=== PATIENT | female | born 1940 | race Caucasian/White ===

== ENCOUNTER → 2021-07-27 15:30 | Outpatient (BNVA) | payer OTHER, MEDICAID, SELFPAY | PROVIDERS: Visit Provider Psychiatry & Neurology Neurology | DX: G20 Parkinson's disease (principal); K59.00 Constipation, unspecified; R44.3 Hallucinations, unspecified | CPT/HCPCS: 99212 ==

== ENCOUNTER → 2021-11-18 14:42 | Outpatient (BNVA) | payer OTHER, MEDICAID, SELFPAY | PROVIDERS: Visit Provider Psychiatry & Neurology Neurology | DX: G20 Parkinson's disease (principal); K59.00 Constipation, unspecified; R44.3 Hallucinations, unspecified | CPT/HCPCS: 99212 ==

== ENCOUNTER → 2022-03-10 15:14 | Outpatient (BNVA) | payer OTHER, MEDICAID, SELFPAY | PROVIDERS: Visit Provider Psychiatry & Neurology Neurology | DX: G20 Parkinson's disease (principal); K59.00 Constipation, unspecified; R44.3 Hallucinations, unspecified | CPT/HCPCS: 99212 ==

== ENCOUNTER → 2022-04-24 15:38 | Outpatient (BNVA) | payer OTHER, MEDICAID, SELFPAY | PROVIDERS: Visit Provider Psychiatry & Neurology Neurology | DX: G20 Parkinson's disease (principal); K59.00 Constipation, unspecified; R44.3 Hallucinations, unspecified | CPT/HCPCS: 99212 ==

== ENCOUNTER → 2022-07-25 15:02 | Outpatient (BNVA) | payer OTHER, MEDICAID, SELFPAY | PROVIDERS: Visit Provider Psychiatry & Neurology Neurology | DX: G20 Parkinson's disease (principal); K59.00 Constipation, unspecified | CPT/HCPCS: 99212 ==

== ENCOUNTER → 2022-08-30 15:28 | Outpatient (BNVA) | payer OTHER, MEDICAID, SELFPAY | PROVIDERS: Visit Provider Psychiatry & Neurology Neurology | DX: G20 Parkinson's disease (principal); K59.00 Constipation, unspecified | CPT/HCPCS: Q3014 ==

== ENCOUNTER → 2022-09-18 10:55 | Outpatient (BNVA) | payer OTHER, MEDICAID, SELFPAY | PROVIDERS: Visit Provider Psychiatry & Neurology Neurology | DX: G20 Parkinson's disease (principal); K59.00 Constipation, unspecified | CPT/HCPCS: Q3014 ==

== ENCOUNTER → 2022-10-24 16:04 | Outpatient (BNVA) | payer OTHER, MEDICAID, SELFPAY | PROVIDERS: Visit Provider Psychiatry & Neurology Neurology | DX: G20 Parkinson's disease (principal); R44.3 Hallucinations, unspecified; I95.9 Hypotension, unspecified; K59.00 Constipation, unspecified | CPT/HCPCS: 99212 ==

== ENCOUNTER → 2023-02-05 15:06 | Outpatient (BNVA) | payer OTHER, MEDICAID, SELFPAY | PROVIDERS: Visit Provider Psychiatry & Neurology Neurology ==

== ENCOUNTER 2023-02-05 15:10 | Outpatient (AMB) | payer OTHER, MEDICAID, SELFPAY ==
--- NOTE | 2023-02-05 15:07 | A.OFFVIS_ITS ---
Intake Intake Visit Reasons: 3 mo f/u for Tremors-confirmed Intake Note: Patient presents for 3 month follow up Allergies No Known Allergies Allergy (Verified 02/05/23 15:07) Medication List - Last Reconciled 02/05/23 by Joanna Veras MD ascorbic acid (vitamin C) 1,000 mg PO DAILY carbidopa-levodopa 23.75-95 mg ER (Rytary) 3 caps PO .5 times a day carbidopa-levodopa 50-200 mg ER 1 tab PO .5 times a day melatonin 5 mg PO .at bedtime mirtazapine 15 mg PO BEDTIME multivitamin 1 tab PO DAILY HPI HPI Comments History of Present Illness Details ??82y/o female calls for follow up .she has increased tremors, shuffling the the morning.Her freezing episodes she is on rytary 23/95 - 3 caps 5 times a day , sinemet CR 50/200 5 times a day . she wants to try 3 am dose and see how she is doing CBD at night is helping her tremors and sleep. ? she takes melatonin 5 mg about 10 pm and sleepy during the day. she has h/o depression as a child - has ECT she has memory issues.she has trouble remembering conversations. ?Denies hallucination, lightheadedness or dizziness. ???Denies problem with eating or swallowing. she reports weight loss. [facility] Medical History Anxiety Constipation Depression Hallucinations Hypotension Parkinsons disease Social History Alcohol intake: never Patient Tobacco Use Status: Never used Tobacco Physical Exam Neuro Other: SPeech normal Alert oriented X 3 Assessment & Plan Assessment & Plan (1) Parkinsons disease: Code(s): G20 - Parkinson's disease (2) Constipation: Code(s): K59.00 - Constipation, unspecified Plan Mirtazepine 15mg qhs sinemet CR 50/200 1 tab 8am, 1pm, 6pm, 10pm Rytary 23.75/95 3 cap 4 times a day she declines Duopa Telehealth Telehealth Location of provider rendering services: practice address Location of patient: address on file Patient Identification confirmed using: Name, : Yes Telehealth method: voice only Patient verbally consented to treatment: Yes Patient verbally consented to billing insurance company: Yes Patient informed of any privacy concerns related to visit: Yes Minutes spent on Phone/Video with Pt.: 22 Coding Level of Care Code Tele Est Pt Level 4 (03084) Diagnoses Parkinsons disease G20 Constipation K59.00
== END 2023-02-05 16:00 ==
PROVIDERS: Visit Provider Psychiatry & Neurology Neurology
DX: G20 Parkinson's disease (principal); K59.00 Constipation, unspecified
CPT/HCPCS: 99214

== ENCOUNTER 2023-04-23 14:25 | Outpatient (AMB) | payer OTHER, MEDICAID, SELFPAY ==
--- NOTE | 2023-04-23 14:37 | MHC.OFFVIS ---
Intake Intake Visit Reasons: 6 mo f/u for tremors-confirmed Intake Note: Pt presents to the office for a 6 month follow up of tremors. She states her tremors are most severe in the morning, at least 5 of 7 days. They can last any where between a few minutes to a full 24 hours. Pt would like to discuss coming off the Mirtazepine. Allergies No Known Allergies Allergy (Verified 04/23/23 14:38) HPI HPI Comments History of Present Illness Details ??82y/o female calls for follow up .she lost weight says she stopped dairy.she wants to stop mirtazepine because she thinks it can cause dementia. But it does help her to sleep.she strate don a immune booster and wants to start a mood supplement with 5 HTryptophan. she wanted something for anxiety - but wondering if she can take a supplement instead of zoloft. she has increased tremors, shuffling the the morning.Her freezing episodes she is on rytary - 3 caps 5 times a day , sinemet CR 50/200 5 times a day . she wants to try 3 am dose and see how she is doing CBD at night is helping her tremors and sleep. ? she takes melatonin 5 mg about 10 pm and sleepy during the day. she has h/o depression as a child - has ECT she has memory issues.she has trouble remembering conversations. ?Denies hallucination, lightheadedness or dizziness. ???Denies problem with eating or swallowing. she reports weight loss. [facility] Medical History Hallucinations Hypotension Anxiety Depression Constipation Parkinsons disease Social History Alcohol intake: never Patient Tobacco Use Status: Never used Tobacco Physical Exam Const Other: Mildly decreased blink and facial expression Moderate bradykinesia Bienvenido Ue rest tremors R>l Speech- good volume Mild anxiety Nutritional Appearance: average body habitus Orientation/consciousness: patient oriented x3 Neuro General: patient oriented x3 and moves all extremities Cognition (Neuro): normal cognition Assessment & Plan Assessment & Plan (1) Parkinsons disease: Code(s): G20 - Parkinson's disease (2) Constipation: Code(s): K59.00 - Constipation, unspecified Plan Mirtazepine 15mg qhs sinemet CR 50/200 1 tab 8am, 1pm, 6pm, 10pm Rytary 23.75/95 3 cap 5 times a day Discussed in detail about increasing caloric intake nutrition etc Coding Level of Care Code Est Pt Level 4 (20555) Diagnoses Parkinsons disease G20 Constipation K59.00
== END 2023-04-23 15:04 | disposition home or self-care (01) ==
PROVIDERS: Visit Provider Psychiatry & Neurology Neurology
DX: G20.A1 Parkinson's disease without dyskinesia, without mention of fluctuations (principal); K59.00 Constipation, unspecified
CPT/HCPCS: 99214

== ENCOUNTER → 2023-04-23 14:25 | Outpatient (BNVA) | payer OTHER, MEDICAID, SELFPAY | PROVIDERS: Visit Provider Psychiatry & Neurology Neurology | DX: G20.A1 Parkinson's disease without dyskinesia, without mention of fluctuations (principal); K59.00 Constipation, unspecified | CPT/HCPCS: 99212 ==

== ENCOUNTER → 2023-07-27 14:37 | Outpatient (BNVA) | payer OTHER, MEDICAID, SELFPAY | PROVIDERS: Absent Provider Nurse Practitioner Family; Visit Provider Nurse Practitioner Family ==

== ENCOUNTER 2024-04-09 14:10 | Outpatient (AMB) | payer MEDICAID, SELFPAY ==
--- NOTE | 2024-04-09 14:18 | MHC.OFFVIS ---
Vital Signs 04/09/24 14:20 Height 5 ft 4.5 in Weight 95 lb BMI 16.1 BP 110/70 Blood Pressure Location Rt brachial Position Sitting Respiration 16 Pulse 80 Pulse Source Pulse Oximeter Pulse Oximetry (%) 98 Oxygen Delivery Method Room Air Intake Visit Reasons: Follow Up Intake Note: Pt presents to the office for 9 month follow up for Parkinson's. [employer] Coordinator Required: No Allergies No Known Allergies Allergy (Verified 04/09/24 14:19) Medication List - Last Reconciled 04/09/24 by DINA Anton ascorbic acid (vitamin C) 1,000 mg PO DAILY carbidopa-levodopa 23.75-95 mg ER (Rytary) 3 caps PO .5 times a day carbidopa-levodopa 50-200 mg ER 1 tab PO .5 times a day docusate sodium (Colace) 100 mg PO BID PRN 90 days hydroxyzine HCl 10 mg PO TID PRN istradefylline (Nourianz) 20 mg PO DAILY 30 days melatonin 5 mg PO .at bedtime mirtazapine 30 mg PO BEDTIME multivitamin 1 tab PO DAILY sertraline 50 mg PO DAILY HPI Comments Details: 83-yr-old female presents for f/u of Parkinson's disease.. Pt is accompanied by her friend Janet. Since the last visit, pt did find the Nourianz to be very helpful. She did run out of it in December or January, and did not do as well that month, but felt better once she resumed it. Then, pt reports she had a fall on 02/11/24, and sustained a right femur fx requiring right femur ORIF. Pt states she was standing at a counter and fell, possibly lost her balance. Pt did note that someone suggetsed she have a bone density scan- but her friend states pt did not see the reasoning for it. She went to rehab, and while at rehab, she states her PD medications were not given as ordered. She was d/c'd home at the end of Feb w/o home PT/OT/NSG. She had ortho f/u w/ Dr Hurd's office through [email or web address]- they gave her an out-pt PT order. Since, returning home, pt has left the [employer] program as they could not offer as much home care assistance as pt feels she needs. She has a new w/c which is helpful. She is contining to work w/ She has an appt w/ her new PCP office in Apr. She is hoping to be referred to [facility]. Pt's current PD medication regimen: Rytary 23.75-95mg- 3 caps QID at 8am, 12pm, 4pm, 8pm. And 4 caps qd at 3am. She is concerned about the blue dye in her Rytary caps. CD-LD ER 50-200mg- 1 tab at 5 x's a day at 8am, 12pm, 4pm, 8pm, 3am. [id number] qd. ADL's: INeeding more help Swallowing: No usual issues Drooling: some drooling- day and night Orthostatic lightheadedness: Denies Constipation: Chronic- senna stopped working, using Mag citrate w/ better effect Stiffness: also feels stiffness, legs feel heavy,. denies cramps Dyskinesias: States feet can tap at times- but maybe that is her ADHD Tremor: ican be increased, has in the am but not always, has tremor even when she wakes up. Gait: Her balance is still poor Falls: as above. Hallucinations: May have illusions- thinks something is moving on the floor, but its just a spot Memory: stable Sleep: some nights sleeps 11pm-7am, other nights sleeps only a few hours or not all during the night, does nap throughout the day. Tylenol and hydroxyzine help w/ sleep. Exercise: is hoping to do PT Mood: Stable. Can be compulsive- states strong family h/o ADHD. Other: weight is stable. she has started to have dental work done. [facility] Medical History (Updated 04/09/24 @ 15:14 by DINA Anton) Hallucinations Hypotension Anxiety Depression Constipation Parkinsons disease Surgical History (Updated 04/09/24 @ 15:14 by DINA Anton) History of femoral hernia repair Social History Alcohol intake: never Patient Tobacco Use Status: Never used Tobacco Physical Exam Vital Signs: Last Vital Signs Pulse 80 04/09/24 14:20 Resp 16 04/09/24 14:20 BP 110/70 04/09/24 14:20 Pulse Ox 98 04/09/24 14:20 Oxygen Delivery Method Room Air 04/09/24 14:20 BMI result Body Mass Index 16.1 Const General: cooperative and no acute distress Neuro Other: General: Alert, oriented, very mild STM lapses Expression: Decreased expression and blink Voice: Soft Tremor: No RUE rest tremor today Tone: R>L BUE tightness Dyskinesia: BLE FFM: Bradykinesia, more so on left. Foot taps: Bradykinesia, more so on left. Gait: Stands fairly easily, prone to move and turn quickly w/ decreased arm swing, short steps, unsteady when turning. Psych: Pleasant affect Psych Appearance: grossly normal Mental Status: mental status grossly normal Attitude: cooperative Assessment & Plan Assessment & Plan (1) Parkinson's disease without dyskinesia: Code(s): G20.A1 - Parkinson's disease without dyskinesia, without mention of fluctuations Category: Medical (2) History of open reduction and internal fixation (ORIF) procedure: Code(s): Z98.890 - Other specified postprocedural states Category: Surgical (3) Right femoral fracture: Code(s): S72.91XA - Unspecified fracture of right femur, initial encounter for closed fracture Category: Medical (4) Constipation: Code(s): K59.00 - Constipation, unspecified Category: Medical Plan Home PT & OT as pt is homebound as she requires assistive device and assist of 1 to leave home safely d/t Parkinson's disease, dyskinesia, s/p right femur ORIF. Home PT for home safety, gait training, transfer training, strength training eval & tx Home OT for home safety, tremor, ADL, adaptive equipment eval & tx. Information shared on PD education resources. Note pt was wearing heeled cowboy boots, thus advised pt to wear better fitting and more supportive footwear. Pt advised to avoid daytime naps. f/u w/ Dr Hurd, ortho, as scheduled. Encouraged pt to discuss bone density scan w/ orthoi/new PCP- as if she does have osteoporosis, this can often be tretaed. Continue: Rytary 23.75-95mg- 3 caps QID at 8am, 12pm, 4pm, 8pm. And 4 caps qd at 3am. CD-LD ER 50-200mg- 1 tab at 5 x's a day at 8am, 12pm, 4pm, 8pm, 3am. Nourianz 20mg qam- as this has improved on-times. Mag citrate prn. Will refill hydroxzine until pt establishes care w/ new PCP. Past trials- trihexyphenidyl 1mg bid, Comtan. f/u in 3 months or sooner prn. Orders: [facility]errals [facility] Referral G20.A1 - Parkinson's disease without dyskinesia, without mention of fluctuations, S72.91XA - Unspecified fracture of right femur, initial encounter for closed fracture, Z98.890 - Other specified postprocedural states Medications: New hydroxyzine HCl 10 mg PO BID 30 days PRN 60 tabs 1RF anxiety Coding Level of Care Code Est Pt Level 4 (64890) Complex EM visit Add On G2211 Diagnoses Parkinson's disease without dyskinesia G20.A1 History of open reduction and internal fixation (ORIF) procedure Z98.890 Right femoral fracture S72.91XA Constipation K59.00 Time Spent (min) 45
[2024-04-09 14:20] VITALS: BP 110/70; PULSE 80; RESP 16; O2SAT 98; BMI 16.1
== END 2024-04-09 15:36 | disposition home or self-care (01) ==
PROVIDERS: Visit Provider Nurse Practitioner Family
DX: G20.A1 Parkinson's disease without dyskinesia, without mention of fluctuations (principal); Z98.890 Other specified postprocedural states; S72.91XA Unspecified fracture of right femur, initial encounter for closed fracture; K59.00 Constipation, unspecified
CPT/HCPCS: 99214

== ENCOUNTER → 2024-04-09 14:10 | Outpatient (BNVA) | payer MEDICAID, SELFPAY | PROVIDERS: Visit Provider Nurse Practitioner Family | DX: G20.A1 Parkinson's disease without dyskinesia, without mention of fluctuations (principal); S72.91XA Unspecified fracture of right femur, initial encounter for closed fracture; K59.00 Constipation, unspecified; Z98.890 Other specified postprocedural states | CPT/HCPCS: 99212 ==

== ENCOUNTER 2024-07-30 13:03 | Outpatient (AMB) | payer MEDICARE, MEDICAID, SELFPAY ==
[2024-07-30 13:05] VITALS: BP 88/68; BMI 16.5
--- NOTE | 2024-07-30 13:05 | MHC.OFFVIS ---
Vital Signs 07/30/24 13:05 Height 5 ft 4 in Weight 96 lb BMI 16.5 BP 88/68 L Blood Pressure Location Rt brachial Position Sitting Intake Visit Reasons: Follow up Intake Note: Patient presents for follow up Allergies No Known Allergies Allergy (Verified 07/30/24 13:06) HPI Comments Details: 83-yr-old female presents for f/u of Parkinson's disease.. Patient is accompanied by her friend Janet. [employer] is helping her . she had a fall Apr 2024.she was making a sandwich and fell backwards. she has PT and OT after that and started speech therapy this week. she wakes up form sleep with increased tremors. she also reports abdominal tremors? before generalized body tremors. Pt's current PD medication regimen: Rytary 23.75-95mg- 3 caps QID at 8am, 12pm, 4pm, 8pm. And 3-4 caps qd at 3am. She is concerned about the blue dye in her Rytary caps. CD-LD ER 50-200mg- 1 tab at 5 x's a day at 8am, 12pm, 4pm, 8pm, 3am. Nourianz 20mg qd she has 3-4 hrs OFF periods with this regimen History from last visit-Then, pt reports she had a fall on 02/11/24, and sustained a right femur fx requiring right femur ORIF. Pt states she was standing at a counter and fell, possibly lost her balance. Pt did note that someone suggested she have a bone density scan- but her friend states pt did not see the reasoning for it. She went to rehab, and while at rehab, she states her PD medications were not given as ordered. She was d/c'd home at the end of Feb w/o home PT/OT/NSG. She had ortho f/u w/ Dr Hurd's office through [employer]- they gave her an out-pt PT order. Since, returning home, pt has left the [employer] program as they could not offer as much home care assistance as pt feels she needs. She has a new w/c which is helpful. She is continuing to work w/ She has an appt w/ her new PCP office in Apr. She is hoping to be referred to [facility]. ADL's: INeeding more help Swallowing: No usual issues Drooling: some drooling- day and night Orthostatic lightheadedness: Denies Constipation: Chronic- senna stopped working, using Mag citrate w/ better effect Stiffness: also feels stiffness, legs feel heavy,. denies cramps Dyskinesias: States feet can tap at times- but maybe that is her ADHD Tremor: ican be increased, has in the am but not always, has tremor even when she wakes up. Gait: Her balance is still poor Falls: as above. Hallucinations: May have illusions- thinks something is moving on the floor, but its just a spot Memory: stable Sleep: some nights sleeps 11pm-7am, other nights sleeps only a few hours or not all during the night, does nap throughout the day. Tylenol and hydroxyzine help w/ sleep. Exercise: is hoping to do PT Mood: Stable. Can be compulsive- states strong family h/o ADHD. Other: weight is stable. she has started to have dental work done. [facility] Medical History Parkinson disease with dyskinesia Hallucinations Hypotension Anxiety Depression Constipation Parkinsons disease Surgical History History of femoral hernia repair Social History Alcohol intake: never Patient Tobacco Use Status: Never used Tobacco Physical Exam Vital Signs: Last Vital Signs BP 88/68 L 07/30/24 13:05 BMI result Body Mass Index 16.5 Const Other: Mildly decreased blink and facial expression Moderate bradykinesia Mild dyskinesias , no tremors Speech- good volume Mild anxiety Nutritional Appearance: average body habitus Orientation/consciousness: patient oriented x3 Neuro General: patient oriented x3 and moves all extremities Cognition (Neuro): normal cognition Assessment & Plan Assessment & Plan (1) Parkinson disease with dyskinesia: Code(s): G20.B1 - Parkinson's disease with dyskinesia, without mention of fluctuations Category: Medical Qualifiers: Fluctuating manifestations: with fluctuating manifestations Qualified Code(s): G20.B2 - Parkinson's disease with dyskinesia, with fluctuations (2) Parkinson's disease without dyskinesia: Code(s): G20.A1 - Parkinson's disease without dyskinesia, without mention of fluctuations Category: Medical Qualifiers: Fluctuating manifestations: with fluctuating manifestations Qualified Code(s): G20.A2 - Parkinson's disease without dyskinesia, with fluctuations Plan SHe will be a good candidate for duopa pump or Vyalev due to more than 3 hrs of OFF time with this regimen. Rytary 23.75-95mg- 3 caps QID at 8am, 12pm, 4pm, 8pm. And 4 caps qd at 3am. CD-LD ER 50-200mg- 1 tab at 5 x's a day at 8am, 12pm, 4pm, 8pm, 3am. Nourianz 20mg qam- as this has improved on-times. Mag citrate prn. SPeech therapy - continue Past trials- trihexyphenidyl 1mg bid, Comtan. f/u in 3 months or sooner prn. Medications: Changed From hydroxyzine HCl 10 mg PO BID 30 days PRN 60 tabs 1RF anxiety To hydroxyzine HCl No color dye - patient allergic Only white pills 10 mg PO BID 30 days PRN 60 tabs 1RF anxiety Coding Level of Care Code Est Pt Level 4 (79502) Complex EM visit Add On G2211 Diagnoses Parkinson's disease with dyskinesia and fluctuating manifestations G20.B2 Fluctuating manifestations: with fluctuating manifestations Parkinson's disease without dyskinesia, with fluctuating manifestations G20.A2 Fluctuating manifestations: with fluctuating manifestations
--- OUTSIDE RECORDS SUMMARY | 2024-07-30 14:58 | XMS_ITS | Clinical Summary ---
Author Organization Unknown Care Team Providers Care Ribbon Lapper Tender Name Role Phone STONE FLUX TUBE ATTENDANT, GRACIE Unavailable Unavailab myron STAHL, KYLE Unavailable Unavailable Payers Payer Name Policy Type Policy Number Effective Date Expira tion Date MEDICARE.NGS.PDGM [id number] Problems Condition Name Condition Details Condition Category Status Onset Date Resolution Date Last Treatment Date Treating Clinician Comments PARKINSON'S DIS W/O DYSKINESIA, W/O MENTION OF FLUCTUATIONS Active 07-21 00:00: 00 UNSP FRACTURE OF RIGHT FEMUR, SUBS FOR CLOS FX W ROUTN HEAL Active 07-21 00:00: 00 ANXIETY DISORDER, UNSPECIFIED Active 07-21 00:00: 00 DEPRESSION, UNSPECIFIED Active 07-21 00:00: 00 CONSTIPATION , UNSPECIFIED Active 07-21 00:00: 00 HISTORY OF FALLING Active 07-21 00:00: 00 Allergies, Adverse Reactions, Alerts Allergy Name Allergy Type Status Severity Reaction(s) Onset Date Inactive Date Treating Clinician Comments NO KNOWN ALLERGIES Propensity to adverse reactions Active 07-21 11:18: 35 Vital Signs Vital Name Observation Time Observation Value Commen ts Temperature 2024-07-28 11:48:00.000 97.2 [degF] Temperature 2024-07-21 10:39:00.000 96.5 [degF] BMI (%) 2024-07-21 10:39:00.000 16 kg/m2 Height 2024-07-21 10:39:00.000 64 [in_us] Pulse 2024-07-28 11:48:00.000 79 /min Pulse 2024-07-21 10:39:00.000 67 /min O2 Saturation (%) 2024-07-28 11:48:00.000 97 % O2 Saturation (%) 2024-07-21 10:39:00.000 95 % Respirations 2024-07-28 11:48:00.000 18 /min Respirations 2024-07-21 10:39:00.000 18 /min Weight (lbs) 2024-07-21 10:39:00.000 95 [lb_av] Systolic Blood Pressure 2024-07-28 11:48:00.000 90 mm[ Hg] Systolic Blood Pressure 2024-07-21 10:39:00.000 100 mm [Hg] Diastolic Blood Pressure 2024-07-28 11:48:00.000 52 mm [Hg] Diastolic Blood Pressure 2024-07-21 10:39:00.000 58 mm [Hg] Plan of Treatment Planned Activity Planned Date Details Comments Future Scheduled Test AGENCY MAY PERFORM A RESUMPTION OF CARE VISIT FOLLOWING ANY HOSPITAL ADMISSION. ST TO EVALUATE, ASSESS AND MONITOR, PROVIDE SKILLED THERAPEUTIC INTERVENTION, ACTIVITY, EDUCATION, AND TRAINING TO ADDRESS: [code = AGENCY MAY PERFORM A RESUMPTION OF CARE VISIT FOLLOWING ANY HOSPITAL ADMISSION. ST TO EVALUATE, ASSESS AND MONITOR, PROVIDE SKILLED THERAPEUTIC INTERVENTION, ACTIVITY, EDUCATION, AND TRAINING TO ADDRESS:] Future Scheduled Test ST TO [place]OV [place] EDUCATION TO ADDRESS [place]RI[place] / APRAXIA [code = ST TO PROVIDE EDUCATION TO ADDRESS [place]RI[place] / APRAXIA] Future Scheduled Test ST TO PROV [place] EDUCATION FOR NEW ONSET COGNITIVE DEFICIT FOLLOWING ACUTE EXACERBATION OF PARKINSONS DISEASE [code = ST TO PROVIDE EDUCATION FOR NEW ONSET COGNITIVE DEFICIT FOLLOWING ACUTE EXACERBATION OF PARKINSONS DISEASE ] Future Scheduled Test ST TO IDEN TIFY FALL RISK FACTORS; EDUCATE THE PATIENT/CAREGIVER ON WAYS TO REDUCE FALL RISK FACTORS. [code = ST TO IDENTIFY FALL RISK FACTORS; EDUCATE THE PATIENT/CAREGIVER ON WAYS TO REDUCE FALL RISK FACTORS.] Future Scheduled Test ST TO EDUC ATE ON PARKINSONS SELF-MANAGEMENT [code = ST TO EDUCATE ON PARKINSONS SELF-MANAGEMENT] Future Scheduled Test ST MAY EDU COSME ON PAIN MANAGEMENT CLINICALLY INDICATED, INCLUDING NON-PHARMACOLOGICAL PAIN REDUCTION TECHNIQUES (RELAXATION/DISTRACTION/REPOSITIONING/BIO FEEDBACK) FOR PAIN MANAGEMENT [code = ST MAY EDUCATE ON PAIN MANAGEMENT CLINICALLY INDICATED, INCLUDING NON-PHARMACOLOGICAL PAIN REDUCTION TECHNIQUES (RELAXATION/DISTRACTION/REPOSITIONING/BIO FEEDBACK) FOR PAIN MANAGEMENT ] Goal Patient Goal - IMPROVE SPEEC H Goal Provider Goal - Goal Provider Goal - ST STG: PT WILL DEMONSTRATE IMPROVED ABILITY TO MAKE THEIR NEEDS KNOWN EVIDENCED BY IMPROVING SPEECH INTELLIGIBILTY FROM MIN-MOD TO MIN WITHIN [address] LTG: PT WILL DEMONSTRATE IMPROVED ABILITY TO MAKE THEIR NEEDS KNOWN EVIDENCED BY IMPROVING SPEECH INTELLIGIBILTY FROM MIN-MOD TO MOD I WITHIN 8 WEEKS. Goal Provider Goal - ST STG : PATIENT WILL IMPROVE COGNITIVE FUNCTION FOR IMPROVED ABILITY TO MAKE NEEDS KNOWN, SAFETY AND QUALITY OF LIFE FROM EVIDENCE BY IMPROVED MEMORY AND EXECUTIVE FUNCTION FROM MIN-MOD TO MIN WITHIN [address] LTG: PATIENT WILL IMPROVE COGNITIVE FUNCTION FOR IMPROVED ABILITY TO MAKE NEEDS KNOWN, SAFETY AND QUALITY OF LIFE FROM EVIDENCE BY IMPROVED MEMORY AND EXECUTIVE FUNCTION FROM MIN-MOD TO MOD I WITHIN 8 WEEKS. Goal Provider Goal - ST LTG: PATIENT/CAREGIVER WILL DEMONSTRATE ADHERENCE TO FALL REDUCTION SELF-MANAGEMENT AND REDUCING FALL RISK FACTORS TO MINIMIZE FALL RISK BY END OF EPISODE . Goal Provider Goal - ST GOAL: PATIENT/CAREGIVER WILL BE VERBALIZE UNDERSTANDING OF PARKINSON'S AND SELF-MANAGEMENT AND LIFE-STYLE CHANGES BY END OF EPISODE. Goal Provider Goal - ST LTG: PATIENT WILL DEMONSTRATE UNDERSTANDING OF PAIN MANAGEMENT TECHNIQUES EVIDENCED BY REDUCED PAIN BY END OF EPISODE Encounters Start Date/Time End Date/Time Encounter Type Admission Type Attending [facility] Care Department Encounter ID Discharge Date Discharge Status Discharge Condition Discharge Reason Percent Goals Met 2024-07-21 00:00:00 2024-09-18 00:00:00 Outpatient NEW ADMISSION KYLE HARVEY [facility] [id number]
--- OUTSIDE RECORDS SUMMARY | 2024-07-30 14:58 | XMS_ITS | Clinical Summary ---
Author Organization [address] [facility] Address [address] [place] [address] Phone Care Team Providers Care Accounts Payable Manager Name Role Phone Alexa Mei Primary Care Provider + Allergies No known active allergies Medications Medication Sig Dispensed Refills Start Date End Date Status hydrOXYzine HCL (ATARAX) 10 mg tablet TAKE 1 TABLET BY MOUTH TWICE A DAY NEEDED FOR ANXIETY FOR 30 DAYS 04/09/2024 Active magnesium citrate 125 mg capsule TAKE ONE CAPSULE BY MOUTH ONCE A DAY AT BEDTIME 04/01/2024 Active carbidopa-levodopa (Rytary) 23.75-95 mg per XR capsule TAKE 3 CAPSULES BY MOUTH 5X A DAY 04/04/2024 Active carbidopa-levodopa CR (SINEMET CR) 50-200 mg per CR tablet Take 1 Tablet by mouth 4 times daily. PER NEURO 05/01/2024 Active istradefylline (Nourianz) 20 mg tablet Take 1 Tablet by mouth daily. PER NEURO 05/01/2024 Active mirtazapine (REMERON) 30 mg tablet Take 1 Tablet by mouth at bedtime. 05/01/2024 Active ascorbic acid (VITAMIN C) 1,000 mg tablet Take 1,000 mg by mouth daily. Active multivitamin with minerals (DAILY MULTIVITAMIN-MINERALS ORAL) Take 1 Tab by mouth. 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 Anxiety 06/10/2024 Atherosclerosis 06/10/2024 Depression 06/10/2024 Parkinson disease 06/10/2024 Cataract 07/31/2019 Overview (06/10/2024): bilateral Chronic constipation 07/31/2019 Osteoarthritis 07/31/2019 Overview (06/10/2024): Cervical Spine - ho sclerotic lesion Peripheral neuropathy 07/31/2019 Uterine prolapse 02/28/2016 Overview (06/10/2024): Pessary Encounters Date Type Department Care Team Description 06/27/2024 Telephone Internal Medicine [facility] [address] [phone] Wendy Hart MA faxed order ([employer]) 06/16/2024 7:40 AM EST - 06/16/2024 11:59 PM EST Hospital Encounter [facility] Ortho Xray [address] [place] [address] Pain Discharge Disposition: Home or Self Care 06/09/2024 Telephone Internal Medicine - [place] [address] [phone] Alexa Mei PA Forms:PERS from Last 3 Months Surgical History Surgery Date Site/Laterality Comments OTHER SURGICAL HISTORY PROCEDURE: DENIES PREVIOUS SURGERY Medical History Medical History Date Comments Anxiety DX:Anxiety Atherosclerosis DX:Atheroscleros is Cognitive deficits DX:Cognitive deficits Depression DX:Depression Parkinson disease ([facility]) DX:P arkinson disease ([facility]) Uterine prolapse 02/28/2016 DX:Uterine prol apse; COMMENT: Pessary Other congenital anomalies of intestine DX:Other congenital anomalies of intestine; COMMENT: Tortuous Colon Osteoarthritis 07/31/2019 DX:Osteoarthriti s; COMMENT: Cervical Spine - ho sclerotic lesion Peripheral neuropathy 07/31/2019 DX:Periphe ral neuropathy Cataract 07/31/2019 DX:Cataract; COM MENT: bilateral Chronic constipation 07/31/2019 DX:Chronic constipation Family History Relation Name Status Comments Father Mother Social History Tobacco Use Types Packs/Day Years Used Date Smoking Tobacco: Never Smokeless Tobacco: Never Alcohol Use Standard Drinks/Week Comments No 0 (1 standard drink = 0.6 oz pur e alcohol) Sex and Gender Information Value Date Recorded Sex Assigned at Not on file Gender Identity Not on file Sexual Orientation Not on file Job Start Date Occupation Industry Not on file Not on file Not on file Obstetrics History Last Filed Vital Signs Vital Sign Reading Time Taken Comments Blood Pressure 90/64 05/01/2024 8:57 AM EDT Sit ting R Arm Pulse 64 05/01/2024 8:57 AM EDT Temperature - - Respiratory Rate - - Oxygen Saturation - - Inhaled Oxygen Concentration - - Weight 42.2 kg (93 lb) 05/01/2024 8:57 AM EDT Height - - Body Mass Index - - Plan of Treatment Upcoming Encounters Date Type Department Care Team (Late st Contact Info) Description 10/30/2024 3:30 PM EDT Office Visit Internal Medicine - [place] [address] [place] [phone] Alexa Mei PA [address] [place] [address] [place] [address] Health Maintenance Due Date Last Done Comments DTaP,Tdap,and Td Vaccines (1 - Tdap) 1961 Zoster Vaccines (1 of 2) 1992 Pneumococcal Vaccine: 65+ Years (1 of 1 - PCV) 11/07/2007 RSV Immunization Patients 60 + Years Old (1 - 1-dose 75+ series) 2017 Depression Screening 06/07/2022 Falls Risk Assessment 06/07/2022 Osteoporosis Screening (Bone Density Screening) 06/07/2022 Social Influencers of Health Screening 06/07/2022 COVID-19 Vaccine (3 - 2023-2 5 season) 2024 04/22/2021, 03/31/2021 Influenza Vaccine (#1) 2024 HIB Vaccines Aged Out No longer eligi ble based on patient's age to complete this topic HPV Vaccines Aged Out No longer eligi ble based on patient's age to complete this topic Hepatitis A Vaccines Aged Out No long er eligible based on patient's age to complete this topic Hepatitis B Vaccines Aged Out No long er eligible based on patient's age to complete this topic IPV Vaccines Aged Out No longer eligi ble based on patient's age to complete this topic MMR Vaccines Aged Out No longer eligi ble based on patient's age to complete this topic Meningococcal ACWY Vaccine Aged Out N o longer eligible based on patient's age to complete this topic RSV Immunization Patients Under 20 months Aged Out No longer eligible b ased on patient's age to complete this topic Varicella Vaccines Aged Out No longer eligible based on patient's age to complete this topic Procedures Procedure Name Priority Date/Time Associated Diagnosis Comments XR HIP 2-3 VIEWS RIGHT Routine 06/16/2024 8:38 AM EST Pain from Last 3 Months Results * XR Hip 2-3 Views Right (06/16/2024 8:38 AM EST) Narrative RIS PACS/VR - 06/16/2024 8:38 AM EST This order has been auto-finalized and does not contain a result. Trevin Hurd MD IMG XR PROCEDURES RIS PACS/VR from Last 3 Months Advance Directives Documents on File Type Date Recorded Patient Reflexologist Expl anation Health Care Decision (hx) 09/01/2019 AD DAVIS DIRECTIVE Health Care Decision (hx) 09/01/2019 AD DAVIS DIRECTIVE Care Teams Accounts Payable Manager Relationship Specialty Start Date End Date Alexa Mei PA [address] [facility] [address] [place] [address] PCP - General Primary Care 05/01/24
== END 2024-07-30 13:42 | disposition home or self-care (01) ==
PROVIDERS: Visit Provider Psychiatry & Neurology Neurology
DX: G20.B2 Parkinson's disease with dyskinesia, with fluctuations (principal); G20.A2 Parkinson's disease without dyskinesia, with fluctuations
CPT/HCPCS: 99214; G2211

== ENCOUNTER → 2024-07-30 13:03 | Outpatient (BNVA) | payer MEDICARE, MEDICAID, SELFPAY | PROVIDERS: Visit Provider Psychiatry & Neurology Neurology | DX: G20.B2 Parkinson's disease with dyskinesia, with fluctuations (principal) | CPT/HCPCS: 99212 ==

== ENCOUNTER 2024-10-14 10:42 | Outpatient (AMB) | payer MEDICARE, MEDICAID, SELFPAY ==
[2024-10-14 10:53] VITALS: BP 118/72; PULSE 57; O2SAT 98; BMI 16.2
--- NOTE | 2024-10-14 10:53 | MHC.OFFVIS ---
Vital Signs 10/14/24 10:53 Height 5 ft 4 in Weight 94 lb 8 oz BMI 16.2 BP 118/72 Blood Pressure Location Rt brachial Position Sitting Pulse 57 Pulse Source Pulse Oximeter Pulse Oximetry (%) 98 Oxygen Delivery Method Room Air Intake Visit Reasons: Follow up appt Intake Note: Patient following up speech therapy scanned 09/18/24 Allergies No Known Allergies Allergy (Verified 10/14/24 10:54) HPI Comments Details: 83-yr-old female presents for f/u of Parkinson's disease.. Patient is accompanied by her friend Janet. Since the last visit, pt's insurance stopped covering the nourianz, so pt was switched to entacapone. Initially she felt good effect from the entacapone, however then this caused increased bothersome hallucinations. Thus, we have switched pt back to Nourianz 20mg qd, which she started about 3 weeks ago. She feels the nourianz has not fully taken effect yet. Her gait is still shuffling, which can make her tense and anxious. Her friend plans to have her use her w/c a bit more until nourianz is again more effective. The hallucinations have subsided. Pt's current PD medication regimen: Rytary 23.75-95mg- 3 caps QID at 8am, 12pm, 4pm, 8pm, 3am. CD-LD ER 50-200mg- 1 tab at 5 x's a day at 8am, 12pm, 4pm, 8pm, 3am. states she is no longer taking 4 caps at 4am. Nourianz 20mg qd She has wearing off prior to dosing and it takes some time for next dose to kick in: She has 4 hrs OFF periods on her current regimen, which he is compliant with (note even when nourianz was at its most effective, she had 3-4 hours of off time per day). She has completed PT, OT, [employer] She now has home [employer] services- 35 hours per week. ADL's: Needing help Swallowing: No usual issues Drooling: some drooling- day and night Orthostatic lightheadedness: Denies Constipation: Chronic- using Mag citrate prn. seeing a chiropractor which is helping. Stiffness: feels tight when using her walker. Dyskinesias: She is having dyskinesia Tremor: mostly BUE in the morning, or just before evening dose Gait: Her gait is more shuffling. Falls: has had a couple of falls- no injuries. Hallucinations: improved Memory: pt states stable, Friend reports she has good days and bad days. Sleep: stables sleep is variable. Uses Tylenol and hydroxyzine prn- sometimes help w/ sleep. Exercise: doing a home sitting- youtube exercise program. Mood: Stables mood is terrible - happiness is out the window - denies SI. Can be compulsive- online shopping- states strong family h/o ADHD. Other: weight is stable. she has started to have dental work done. [facility] Medical History Parkinson disease with dyskinesia Hallucinations Hypotension Anxiety Depression Constipation Parkinsons disease Surgical History History of femoral hernia repair Social History Alcohol intake: never Patient Tobacco Use Status: Never used Tobacco Physical Exam Vital Signs: Last Vital Signs Pulse 57 10/14/24 10:53 BP 118/72 10/14/24 10:53 Pulse Ox 98 10/14/24 10:53 Oxygen Delivery Method Room Air 10/14/24 10:53 BMI result Body Mass Index 16.2 Const General: cooperative and no acute distress Neuro Other: General: Alert, oriented, very mild STM lapses Expression: Decreased expression and blink Voice: Soft Tremor: No RUE rest tremor today Tone: R>L BUE tightness Dyskinesia: Mild truncal and bilateral lower extremity dyskinesia- causing patient to slide down in chair at times. FFM: Bradykinesia, more so on left. Foot taps: Bradykinesia, more so on left. Gait: Not assessed today. Psych: Pleasant affect Psych Appearance: grossly normal Mental Status: mental status grossly normal Attitude: cooperative Assessment & Plan Assessment & Plan (1) Parkinson disease with dyskinesia: Code(s): G20.B1 - Parkinson's disease with dyskinesia, without mention of fluctuations Category: Medical Qualifiers: Fluctuating manifestations: with fluctuating manifestations Qualified Code(s): G20.B2 - Parkinson's disease with dyskinesia, with fluctuations (2) Parkinson's disease without dyskinesia: Code(s): G20.A1 - Parkinson's disease without dyskinesia, without mention of fluctuations Category: Medical Qualifiers: Fluctuating manifestations: with fluctuating manifestations Qualified Code(s): G20.A2 - Parkinson's disease without dyskinesia, with fluctuations Plan Discussed that patient would benefit from a continuously infused levodopa therapy, such as Duopa pump or Vyalev, as on her current medication regimen she continues to have greater than 3 hours of Parkinson's motor symptom OFF time per day. Patient is not interested in Duopa pump due to need for enteral tube placement. Patient would like to trial Vyalev subcutaneous infusion. Patient now has [employer] and continues to have support of her friend to support the safe home use of Vyalev subcutaneous therapy. Reviewed benefits and risks of therapy. Patient signed Vyalev patient enrollment form today- with the understanding that it may be a few more months before this is a covered therapy option under Medicare. She will be a good candidate for Vyalev due to patient continues to have greater than 3 hours of Parkinson's motor symptom OFF time per day on her current PD medication regimen, which cannot be increased further due to risk for worsening supra-therapeutic levodopa effects, such as worsening dyskinesias anf hallucinations. When available, start Vyalev Vyalev dosage- based on patient's current levodopa tx Base rate:?0.34?mL/hr ?(57.80?mg of levodopa per hour) Total daily basal levodopa dose: 1387.20?mg High rate:?0.37?mL/hr? Low rate:?0.31?mL/hr Extra dose:?0.10?ml (17?mg of levodopa) Lockout time:?1?hours?0?minutes Loading dose:?1.10?mL (200?mg of levodopa) Lockout time:?8?hours In the meantime, continue: Rytary 23.75-95mg- 3 caps QID at 8am, 12pm, 4pm, 8pm. And 4 caps qd at 3am. CD-LD ER 50-200mg- 1 tab at 5 x's a day at 8am, 12pm, 4pm, 8pm, 3am. Nourianz 20mg qam Mag citrate prn. Sertraline and Mirtazapine for mood- as ordered. Past trials- CD-LD IR- ineffective/not tolerated, trihexyphenidyl 1mg bid- not tolerated-, Comtan- caused hallucinations. f/u in 3 months or sooner prn. Coding Level of Care Code Est Pt Level 4 (17799) Complex EM visit Add On G2211 Diagnoses Parkinson's disease with dyskinesia and fluctuating manifestations G20.B2 Fluctuating manifestations: with fluctuating manifestations Parkinson's disease without dyskinesia, with fluctuating manifestations G20.A2 Fluctuating manifestations: with fluctuating manifestations
--- OUTSIDE RECORDS SUMMARY | 2024-10-14 12:51 | XMS_ITS | Clinical Summary ---
Author Organization 175 [facility] Address [address] [place] [address] Phone Care Team Providers Care Washateria Attendant Name Role Phone Alexa Mei Primary Care Provider + Allergies No known active allergies Medications hydrOXYzine HCL (ATARAX) 10 mg tablet TAKE 1 TABLET BY MOUTH TWICE A DAY NEEDED FOR ANXIETY FOR 30 DAYS 04/09/2024 Active magnesium citrate 125 mg capsule TAKE ONE CAPSULE BY MOUTH ONCE A DAY AT BEDTIME 04/01/2024 Active carbidopa-levod opa (Rytary) 23.75-95 mg per XR capsule TAKE 3 CAPSULES BY MOUTH 5X A DAY 04/04/2024 Active carbidopa-levod opa CR (SINEMET CR) 50-200 mg per CR [...] mouth daily. Active multivitamin with minerals (DAILY MULTIVITAMIN-[place] NERALS ORAL) Take 1 Tab by mouth. Active [...] Encounters Date Type Department Care Team Description 09/25/2024 7:39 AM EDT - 09/25/2024 11:59 PM EDT Hospital Encounter [facility] Ortho Xray [address] [place] [address] Pain Discharge Disposition: Home or Self Care from Last 3 Months Surgical History Surgery Date Site/Laterality Comments OTHER SURGICAL HISTORY PROCEDURE: DENIES PREVIOUS SURGERY Medical History Medical History Date Comments Anxiety DX:Anxiety Atherosclerosis DX:Atheroscleros is Cognitive deficits DX:Cognitive deficits Depression DX:Depression Parkinson disease ([facility]) DX:P arkinson disease ([facility]) Uterine prolapse 02/28/2016 DX:Uterine prol [...] drink = 0.6 oz pur e alcohol) Comments Unknown Sex and Gender Information Value Date Recorded Sex Assigned at Not on file Legal Sex Female 4:10 PM EST Gender Identity Not on file Sexual Orientation Not on file Obstetrics History Last Filed [...] PM EDT Office Visit Internal Medicine - [place] [address] [facility] [address] [place] [phone] Alexa Mei PA [address] [facility] [address] [place] [address] Health Maintenance Due Date Last Done Comments DTaP,Tdap,and Td Vaccines (1 - Tdap) 1961 Pneumococcal Vaccine: 50+ Years (1 of 1 - PCV) 1992 Zoster Vaccines (1 of 2) 1992 RSV Immunization Adult Patients (1 - 1-dose 75+ series) 2017 Depression Screening 06/07/2022 Falls Risk Assessment 06/07/2022 Medicare Annual Wellness Visit 06/07/2022 Osteoporosis Screening (Bone Density Screening) 06/07/2022 [...] patient's age to complete this topic Meningococcal B Vaccine Aged Out No l onger eligible based on patient's age to complete this topic RSV Immunization Patients Under 20 months Aged Out No longer eligible b ased on patient's age to complete this topic Varicella Vaccines Aged Out No longer eligible based on patient's age to complete this topic Procedures Procedure Name Priority Date/Time Associated Diagnosis Comments XR FEMUR 2+ VIEWS RIGHT Routine 09/25/2024 9:48 AM EDT Pain CBC WITH AUTO DIFFERENTIAL Routine 07/30/2024 2:25 PM EST Routine general medical examination at a health care facility Other specified abnormal findings of blood chemistry VITAMIN B12 Routine 07/30/2024 2:25 PM EST Routine general medical examination at a health care facility FERRITIN Routine 07/30/2024 2:25 PM EST Routine general medical examination at a health care facility MAGNESIUM Routine 07/30/2024 2:25 PM EST Routine general medical examination at a health care facility CBC AND DIFFERENTIAL Routine 07/30/2024 2:25 PM EST Routine general medical examination at a health care facility Other specified abnormal findings of blood chemistry COMPREHENSIVE METABOLIC PANEL Routine 07/30/2024 2:25 PM EST Routine general medical examination at a health care facility THYROID STIMULATING HORMONE Routine 07/30/2024 2:25 PM EST Routine general medical examination at a health care facility VITAMIN D 25 HYDROXY Routine 07/30/2024 2:25 PM EST Routine general medical examination at a health care facility Vitamin D deficiency, unspecified IRON AND TIBC Routine 07/30/2024 2:25 PM EST Routine general medical examination at a health care facility from Last 3 Months Results * XR Femur 2+ Views Right (09/25/2024 9:48 AM EDT) Narrative RIS PACS/VR - 09/25/2024 9:59 AM EDT This order has been auto-finalized and does not contain a result. us Veronica Reyes MD IMG XR PROCEDURES Final Result RIS PACS/VR * (ABNORMAL) CBC auto differential (07/30/2024 2:25 PM EST) WBC 5.0 4.8 - 10.8 K/mcL LAB HEMETOLOGY METHOD 07/30/2024 3:39 PM [facility] RBC 4.10 3.80 - 4.80 M/mcL LAB HEMETOLOGY METHOD 07/30/2024 3:39 PM [facility] Hemoglobin 12.6 11.5 - 16.0 g/dL LAB HEMETOLOGY METHOD 07/30/2024 3:39 PM [facility] Hematocrit 39.9 35.0 - 47.0 % LAB HEMETOLOGY METHOD 07/30/2024 3:39 PM [facility] MCV 96.6 79.0 - 98.0 FL LAB HEMETOLOGY METHOD 07/30/2024 3:39 PM [facility] MCH 30.5 27.0 - 32.0 pcg LAB HEMETOLOGY METHOD 07/30/2024 3:39 PM [facility] MCHC 31.6(L) 32.0 - 37.0 g/dL LAB HEMETOLOGY METHOD 07/30/2024 3:39 PM [facility] RDW 12.1 11.0 - 15.0 % LAB HEMETOLOGY METHOD 07/30/2024 3:39 PM [facility] Platelets 201 130 - 400 K/mcL LAB HEMETOLOGY METHOD 07/30/2024 3:39 PM [facility] MPV 12.4(H) 7.0 - 11.0 FL LAB HEMETOLOGY METHOD 07/30/2024 3:39 PM [facility] NRBC 0.0 <1.0 % LAB HEMETOLOGY METHOD 07/30/2024 3:39 PM [facility] NRBC Absolute 0.00 <0.10 K/mcL LAB HEMETOLOGY METHOD 07/30/2024 3:39 PM [facility] Neutrophils Relative 68.6 % LAB HEMETOLOGY METHOD 07/30/2024 3:39 PM [facility] Lymphocytes Relative 17.1 % LAB HEMETOLOGY METHOD 07/30/2024 3:39 PM [facility] Monocytes Relative 12.5 % LAB HEMETOLOGY METHOD 07/30/2024 3:39 PM [facility] Eosinophils Relative 0.8 % LAB HEMETOLOGY METHOD 07/30/2024 3:39 PM [facility] Basophils Relative 0.6 % LAB HEMETOLOGY METHOD 07/30/2024 3:39 PM [facility] Immature Granulocytes Relative 0.4 % LAB HEMETOLOGY METHOD 07/30/2024 3:39 PM [facility] Neutrophils Absolute 3.46 1.50 - 7.00 K/mcL LAB HEMETOLOGY METHOD 07/30/2024 3:39 PM [facility] Lymphocytes Absolute 0.86(L) 1.00 - 5.00 K/mcL LAB HEMETOLOGY METHOD 07/30/2024 3:39 PM [facility] Monocytes Absolute 0.63 0.20 - 1.00 K/mcL LAB HEMETOLOGY METHOD 07/30/2024 3:39 PM [facility] Eosinophils Absolute 0.04 0.00 - 0.50 K/mcL LAB HEMETOLOGY METHOD 07/30/2024 3:39 PM [facility] Basophils Absolute 0.03 0.00 - 0.20 K/mcL LAB HEMETOLOGY METHOD 07/30/2024 3:39 PM [facility] Immature Granulocytes Absolute 0.02 0.00 - 0.03 K/mcL LAB HEMETOLOGY METHOD 07/30/2024 3:39 PM EST [facility] Blood Venous blood specimen / Unknown Venipuncture / Unknown 07/30/2024 2:25 PM EST 07/30/2024 3:19 PM EST Alexa JAMES LAB BLOOD ORDERABLES Fin al Result Performing Organization Address City/[facility]/ZIP Co de Phone Number [facility] [address] [place] [address], [place] [phone] * Iron and TIBC (07/30/2024 2:25 PM EST) Iron 62 40 - 150 mcg/dL LAB CHEMISTRY METHOD 07/30/2024 5:31 PM EST [facility] TIBC 349 250 - 450 mcg/dL LAB CHEMISTRY METHOD 07/30/2024 5:31 PM EST [facility] Iron Saturation 18 15 - 50 % LAB CHEMISTRY METHOD 07/30/2024 5:31 PM EST [facility] Blood Venous blood specimen / Unknown Venipuncture / Unknown 07/30/2024 2:25 PM EST 07/30/2024 3:19 PM EST Alexa JAMES LAB BLOOD ORDERABLES Fin al Result Performing Organization Address City/[facility]/ZIP Co de Phone Number [facility] [address] [place] [address], [place] [phone] * Vitamin D 25 hydroxy (07/30/2024 2:25 PM EST) Vit D, 25-Hydroxy 45.7 30.0 - 80.0 ng/mL LAB CHEMISTRY METHOD 07/30/2024 5:38 PM EST [facility] Blood Venous blood specimen / Unknown Venipuncture / Unknown 07/30/2024 2:25 PM EST 07/30/2024 3:19 PM EST Alexa JAMES LAB BLOOD ORDERABLES Fin al Result Performing Organization Address City/[facility]/ZIP Co de Phone Number [facility] [address] [place] [address], [place] [phone] * Thyroid stimulating hormone (07/30/2024 2:25 PM EST) TSH 4.00 0.40 - 4.00 mcIU/mL LAB CHEMISTRY METHOD 07/30/2024 5:39 PM EST [facility] Blood Venous blood specimen / Unknown Venipuncture / Unknown 07/30/2024 2:25 PM EST 07/30/2024 3:19 PM EST Alexa JAMES LAB BLOOD ORDERABLES Fin al Result Performing Organization Address [facility]/ZIP Co de Phone Number [facility] [address] [place] [address], [place] [phone] * Magnesium (07/30/2024 2:25 PM EST) [facility] Magnesium 2.3 1.9 - 2.6 mg/dL LAB CHEMISTRY METHOD 07/30/2024 5:31 PM EST [facility] Blood Venous blood specimen / Unknown Venipuncture / Unknown 07/30/2024 2:25 PM EST 07/30/2024 3:19 PM EST Alexa JAMES LAB BLOOD ORDERABLES Fin al Result Performing Organization Address [facility]/ZIP Co de Phone Number [facility] [address] [place] [address], [place] [phone] * Ferritin (07/30/2024 2:25 PM EST) Ferritin 49 8 - 252 ng/mL LAB CHEMISTRY METHOD 07/30/2024 5:31 PM EST [facility] Blood Venous blood specimen / Unknown Venipuncture / Unknown 07/30/2024 2:25 PM EST 07/30/2024 3:19 PM EST Alexa JAMES LAB BLOOD ORDERABLES Fin al Result [facility] [address] [place] [address], [place] [phone] * Vitamin B12 (07/30/2024 2:25 PM EST) Pathologist [facility] Vitamin B-12 310 250 - 900 pcg/mL LAB CHEMISTRY METHOD 07/30/2024 6:00 PM EST [facility] Blood Venous blood specimen / Unknown Venipuncture / Unknown 07/30/2024 2:25 PM EST 07/30/2024 3:19 PM EST Alexa JAMES LAB BLOOD ORDERABLES Fin al Result Performing Organization Address City/[facility]/ZIP Co de Phone Number [facility] [address] [place] [address], [place] [phone] * (ABNORMAL) Comprehensive metabolic panel (07/30/2024 2:25 PM EST) [facility] Sodium 137 133 - 145 mmol/L LAB CHEMISTRY METHOD 07/30/2024 6:00 PM [facility] Potassium 4.3 3.5 - 5.5 mmol/L LAB CHEMISTRY METHOD 07/30/2024 6:00 PM [facility] Chloride 101 96 - 110 mmol/L LAB CHEMISTRY METHOD 07/30/2024 6:00 PM [facility] CO2 32 21 - 32 mmol/L LAB CHEMISTRY METHOD 07/30/2024 6:00 PM EST [facility] Anion Gap 4 3 - 11 LAB CHEMISTRY METHOD 07/30/2024 6:00 PM [facility] Glucose 84 70 - 100 mg/dL LAB CHEMISTRY METHOD 07/30/2024 6:00 PM [facility] BUN 24 5 - 25 mg/dL LAB CHEMISTRY METHOD 07/30/2024 6:00 PM [facility] Creatinine 0.65 0.50 - 1.10 mg/dL LAB CHEMISTRY METHOD 07/30/2024 6:00 PM [facility] eGFR 89 >=60 mL/min/1. 73m2 LAB CHEMISTRY METHOD 07/30/2024 6:00 PM [facility] Comment:Calculation based on the??Chronic Kidney Disease Epidemiology Collaboration (CKD-EPI) equation refit??without adjustment for race. BUN/Creatinine Ratio 36.9 LAB CHEMISTRY METHOD 07/30/2024 6:00 PM [facility] Calcium 9.3 8.5 - 10.5 mg/dL LAB CHEMISTRY METHOD 07/30/2024 6:00 PM [facility] AST (SGOT) 9(L) 10 - 42 unit/L LAB CHEMISTRY METHOD 07/30/2024 6:00 PM [facility] ALT (SGPT) 8(L) 10 - 60 unit/L LAB CHEMISTRY METHOD 07/30/2024 6:00 PM [facility] Alkaline Phosphatase 128(H) 42 - 121 unit/L LAB CHEMISTRY METHOD 07/30/2024 6:00 PM [facility] Total Protein 6.9 6.0 - 8.0 g/dL LAB CHEMISTRY METHOD 07/30/2024 6:00 PM [facility] Albumin 4.1 3.2 - 5.0 g/dL LAB CHEMISTRY METHOD 07/30/2024 6:00 PM [facility] Total Bilirubin 0.7 0.0 - 1.4 mg/dL LAB CHEMISTRY METHOD 07/30/2024 6:00 PM [facility] Blood Venous blood specimen / Unknown Venipuncture / Unknown 07/30/2024 2:25 PM EST 07/30/2024 3:19 PM EST Alexa JAMES LAB BLOOD ORDERABLES Fin al Result [facility] LAB [address] [place] [address], [place] [phone] from Last 3 Months Insurance MEDICARE MEDICAID - [place] Advance Directives Documents on File Type Date Recorded Patient Carton Forming Machine Helper Expl anation Health Care Decision (hx) 09/01/2019 AD DAVIS DIRECTIVE Health Care Decision (hx) 09/01/2019 AD DAVIS DIRECTIVE Care Teams Washateria Attendant Relationship Specialty Start Date End Date Alexa Mei PA [address] [address] PCP - General Primary Care 05/01/24
== END 2024-10-14 11:55 | disposition home or self-care (01) ==
LOC: HO.HSMS 10:42
PROVIDERS: PCP Physician Assistant; Visit Provider Nurse Practitioner Family
DX: G20.B2 Parkinson's disease with dyskinesia, with fluctuations (principal); G20.A2 Parkinson's disease without dyskinesia, with fluctuations
CPT/HCPCS: 99214; G2211

== ENCOUNTER → 2024-10-14 10:42 | Outpatient (BNVA) | payer MEDICARE, MEDICAID, SELFPAY | PROVIDERS: PCP Physician Assistant; Visit Provider Nurse Practitioner Family | DX: G20.B2 Parkinson's disease with dyskinesia, with fluctuations (principal) | CPT/HCPCS: 99212 ==

== ENCOUNTER 2025-01-01 07:58 | Outpatient (AMB) | payer MEDICARE, MEDICAID, SELFPAY ==
--- NOTE | 2025-01-01 07:58 | MHC.OFFVIS ---
Vital Signs 01/01/25 08:03 Height 5 ft 4 in BP 110/72 Blood Pressure Location Rt brachial Position Sitting Pulse 54 Pulse Source Pulse Oximeter Pulse Oximetry (%) 98 Oxygen Delivery Method Room Air Intake Visit Reasons: Follow up Intake Note: Parkinson disease with dyskinesia Allergies No Known Allergies Allergy (Verified 10/14/24 10:54) HPI Comments Details: 84-yr-old female presents for f/u of Parkinson's disease.. Patient is accompanied by her friend Janet. she has been good for past 1 week .she has been approved for [employer] and is waiting to be started . she is using flax seed which is helping her constipation. The hallucinations are intermittent - wakes a and sees someone sitting next to her. Pt's current PD medication regimen: Rytary 23.75-95mg- 3 caps 5 times a day at 8am, 12pm, 4pm, 8pm, 3am. CD-LD ER 50-200mg- 1 tab at 5 x's a day at 8am, 12pm, 4pm, 8pm, 3am. states she is no longer taking 4 caps at 4am. She has wearing off prior to dosing and it takes some time for next dose to kick in: She has 4 hrs OFF periods on her current regimen, which he is compliant with (note even when nourianz was at its most effective, she had 3-4 hours of off time per day). 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 ADL's: Needing help Swallowing: No usual issues Drooling: some drooling- day and night Orthostatic lightheadedness: Denies Constipation: Chronic- using Mag citrate prn. seeing a chiropractor which is helping. Stiffness: feels tight when using her walker. Dyskinesias: She is having dyskinesia Tremor: mostly BUE in the morning, or just before evening dose Gait: Her gait is more shuffling. Falls: has had a couple of falls- no injuries. Hallucinations: improved Memory: pt states stable, Friend reports she has good days and bad days. Sleep: stables sleep is variable. Uses Tylenol and hydroxyzine prn- sometimes help w/ sleep. Exercise: doing a home sitting- [employer] exercise program. Mood: Stables mood is terrible - happiness is out the window - denies SI. Can be compulsive- online shopping- states strong family h/o ADHD. Other: weight is stable. she has started to have dental work done. [facility] Medical History Parkinson disease with dyskinesia Hallucinations Hypotension Anxiety Depression Constipation Parkinsons disease Surgical History History of femoral hernia repair Social History Alcohol intake: never Patient Tobacco Use Status: Never used Tobacco Physical Exam Vital Signs: Last Vital Signs Pulse 54 01/01/25 08:03 BP 110/72 01/01/25 08:03 Pulse Ox 98 01/01/25 08:03 Oxygen Delivery Method Room Air 01/01/25 08:03 Const General: cooperative and no acute distress Neuro Other: General: Alert, oriented, very mild STM lapses Expression: Decreased expression and blink Voice: Soft Tremor: Bienvenido rest tremors L>R Tone: R>L BUE tightness No dyskinesia FFM: Bradykinesia, more so on left. Foot taps: Bradykinesia, more so on left. Gait: Not assessed today. Psych: Pleasant affect Psych Appearance: grossly normal Mental Status: mental status grossly normal Attitude: cooperative Assessment & Plan Assessment & Plan (1) Parkinson disease with dyskinesia: Code(s): G20.B1 - Parkinson's disease with dyskinesia, without mention of fluctuations Category: Medical Qualifiers: Fluctuating manifestations: with fluctuating manifestations Qualified Code(s): G20.B2 - Parkinson's disease with dyskinesia, with fluctuations (2) Parkinson's disease without dyskinesia: Code(s): G20.A1 - Parkinson's disease without dyskinesia, without mention of fluctuations Category: Medical Qualifiers: Fluctuating manifestations: with fluctuating manifestations Qualified Code(s): G20.A2 - Parkinson's disease without dyskinesia, with fluctuations Plan Patient waiting for vyalev. Vyalev dosage- based on patient's current levodopa tx Base rate:?0.34?mL/hr ?(57.80?mg of levodopa per hour) Total daily basal levodopa dose: 1387.20?mg High rate:?0.37?mL/hr? Low rate:?0.31?mL/hr Extra dose:?0.10?ml (17?mg of levodopa) Lockout time:?1?hours?0?minutes Loading dose:?1.10?mL (200?mg of levodopa) Lockout time:?8?hours In the meantime, continue: Rytary 23.75-95mg- 3 caps QID at 8am, 12pm, 4pm, 8pm. And 4 caps qd at 3am. CD-LD ER 50-200mg- 1 tab at 5 x's a day at 8am, 12pm, 4pm, 8pm, 3am. Mag citrate prn. Sertraline and Mirtazapine for mood- as ordered. Past trials- CD-LD IR- ineffective/not tolerated, trihexyphenidyl 1mg bid- not tolerated-, Comtan- caused hallucinations. Coding Level of Care Code Est Pt Level 4 (86828) Complex EM visit Add On G2211 Diagnoses Parkinson's disease with dyskinesia and fluctuating manifestations G20.B2 Fluctuating manifestations: with fluctuating manifestations Parkinson's disease without dyskinesia, with fluctuating manifestations G20.A2 Fluctuating manifestations: with fluctuating manifestations
--- OUTSIDE RECORDS SUMMARY | 2025-01-01 08:02 | XMS_ITS | Clinical Summary ---
Author Organization 175 [facility] Address [address] [place] [address] Phone Care Team Providers Care Manager Human Capital Name Role Phone Alexa Mei Primary Care [...] mouth daily. Active multivitamin with minerals (DAILY MULTIVITAMIN-[place] NERALS ORAL) Take 1 Tab by mouth. 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 Anxiety 06/10/2024 Atherosclerosis 06/10/2024 Depression 06/10/2024 Parkinson disease ([facility] V24, [facility] V28) 09/2023 Cataract 07/31/2019 Overview (06/10/2024): bilateral Chronic constipation 07/31/2019 Osteoarthritis 07/31/2019 Overview (06/10/2024): Cervical Spine - ho sclerotic lesion Peripheral neuropathy 07/31/2019 Uterine prolapse 02/28/2016 Overview (06/10/2024): Pessary Encounters Date Type Department Care Team Description 12/11/2024 Telephone Internal Medicine [address] [phone] Wendy Hart [place] faxed form ([place]) 10/30/2024 3:30 PM EDT Office Visit Internal Medicine [address] [phone] Alexa Mei PA Parkinson's disease, unspecified whether dyskinesia present, unspecified whether manifestations fluctuate ([facility] V24, [facility] V28) (Primary Dx); Anxiety and depression; Multiple acquired skin tags from Last 3 Months Surgical History Surgery Date Site/Laterality Comments OTHER SURGICAL HISTORY PROCEDURE: DENIES PREVIOUS SURGERY Medical History Medical History Date Comments Anxiety DX:Anxiety Atherosclerosis DX:Atheroscleros is Cognitive deficits DX:Cognitive deficits Depression DX:Depression Parkinson disease ([facility] V 24, [facility] V28) DX:Parkinson disease ([facility]) Uterine prolapse 02/28/2016 DX:Uterine prol apse; COMMENT: [...] Sign Reading Time Taken Comments Blood Pressure 122/64 10/30/2024 3:19 PM EDT Pulse 70 10/30/2024 3:19 PM EDT Temperature 36.4 C (97.5 F) 10/30/2024 3:19 PM EDT Respiratory Rate - - Oxygen Saturation 98% 10/30/2024 3:19 PM EDT Inhaled Oxygen Concentration - - Weight 43.6 kg (96 lb 3.2 oz) 10/30/2024 3:19 PM EDT Height 153.7 cm (5' 0.5 ) 10/30/2024 3:19 PM EDT Body Mass Index 18.48 10/30/2024 3:19 PM EDT Plan of Treatment Upcoming Encounters Date Type Department Care Team (Late st Contact Info) Description 06/09/2025 9:00 AM EST Office Visit Internal Medicine - [place] [address] [facility] [address] [place] [phone] Alexa Mei PA 175 [facility] [address] [place] [address] Health Maintenance Due Date Last Done Comments DTaP,Tdap,and Td Vaccines (1 - Tdap) 1959 Pneumococcal Vaccine: 50+ Years (1 of 2 - PCV) 1961 Zoster Vaccines (1 of 2) 1961 RSV Immunization Adult Patients (1 - 1-dose 75+ series) 2017 COVID-19 Vaccine (3 - Pfizer risk series) 05/20/2021 04/22/2021, 03/31/2021 Depression Screening 06/07/2022 Falls Risk Assessment 06/07/2022 Medicare Annual Wellness Visit 06/07/2022 Osteoporosis Screening (Bone Density Screening) 06/07/2022 Social Influencers of Health Screening 06/07/2022 Influenza Vaccine (Season Ended) 2025 HIB Vaccines Aged Out No longer eligi [...] on patient's age to complete this topic Insurance MEDICARE MEDICAID - [place] Advance Directives Documents on File Type Date Recorded 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
[2025-01-01 08:03] VITALS: BP 110/72; PULSE 54; O2SAT 98
== END 2025-01-01 08:39 | disposition home or self-care (01) ==
LOC: HO.HSMS 07:58
PROVIDERS: PCP Physician Assistant; Visit Provider Psychiatry & Neurology Neurology
DX: G20.B2 Parkinson's disease with dyskinesia, with fluctuations (principal); G20.A2 Parkinson's disease without dyskinesia, with fluctuations
CPT/HCPCS: 99214; G2211

== ENCOUNTER → 2025-01-01 07:58 | Outpatient (BNVA) | payer MEDICARE, MEDICAID, SELFPAY | PROVIDERS: PCP Physician Assistant; Visit Provider Psychiatry & Neurology Neurology | DX: G20.B2 Parkinson's disease with dyskinesia, with fluctuations (principal) | CPT/HCPCS: 99212 ==

== ENCOUNTER → 2025-04-02 15:26 | Outpatient (BNVA) | payer MEDICARE, MEDICAID, SELFPAY | PROVIDERS: PCP Physician Assistant; Visit Provider Psychiatry & Neurology Neurology | DX: G20.A2 Parkinson's disease without dyskinesia, with fluctuations (principal); F02.84 Dementia in other diseases classified elsewhere, unspecified severity, with anxiety; K59.00 Constipation, unspecified | CPT/HCPCS: 99212 ==